=== PATIENT | male | born 1965 | race Two or more races ===

== ENCOUNTER 2019-12-23 05:22 | Day surgery (SDC) | payer OTHER ==
[2019-12-23] MEDS ORDERED: MIRALAX17 GM PO (09:31)
[2019-12-23] MEDS ORDERED: TYLENOL ARTHRI650 MG PO (09:31)
[2019-12-23] MEDS ORDERED: ULTRAM50 MG PO (09:31)
[2019-12-23] MEDS ORDERED: NEURONTIN300 MG PO (09:31)
== END 2019-12-23 13:30 | disposition home or self-care (01) ==
LOC: CIR.AMB 05:22 → SURG 07:00 → EDSTATUS 07:00 → CIR.AMB 13:30
DX: K40.90 Unilateral inguinal hernia, without obstruction or gangrene, not specified as recurrent (principal); K42.9 Umbilical hernia without obstruction or gangrene; D17.6 Benign lipomatous neoplasm of spermatic cord